=== PATIENT | male | born 1990 | race Caucasian/White ===

== ENCOUNTER 2016-08-03 14:12 | Emergency (ER) | payer OTHER ==
[~2016-08-03] VITALS: Ht 167.6 cm; Wt 68.9 kg
[~2016-08-03 14:12] MED LIST: PRLSR20 PO
[2016-08-03 14:16] VITALS: Ht 167.6 cm; Wt 68.9 kg
[2016-08-03 14:47] VITALS: BP 114/75; PULSE 55; TEMP 36.9; O2SAT 99
--- NOTE | 2016-08-03 17:10 | EMERGENCY ROOM VISIT NOTE ---
History First contact with patient: 14:20 Chief Complaint: KNEEPAIN Stated Complaint: EXTRA SKIN ON KNEE - PAIN History of Present Illness The patient is a 26 year old male who presents to the Emergency Room with complaints of painful lump on his right knee that has been increasing in size over the past several months. The patient has not had fever or chills. No bleeding or discharge has been noted from the lump. He does not recall injury or trauma. He states his discomfort worsens with certain movement and palpation in the area. He rates the discomfort a 4/10 and has not taken anything [id number]. Review of Systems More than 10 systems were reviewed and otherwise negative with the exception of history of present illness. Past Medical/Surgical History Medical Problems: (1) Corneal abrasion (2) Food poisoning (3) Mononucleosis Family History FH: diabetes mellitus Social History Smoking Status: Never Smoker Alcohol Use: occasionally Drug Use: none Marital Status: single Housing Status: lives with roommate Occupation Status: [employer] student Current/Historical Medications Scheduled PRN Omeprazole (Prilosec), 20 MG PO DAILY PRN for acid reflux Allergies Coded Allergies: Amoxicillin (Unverified Allergy, Intermediate, RASH, 06/15/15) Physical Exam Vital Signs Date Time Temp Pulse Resp B/P Pulse Ox O2 Delivery O2 Flow Rate FiO2 08/03/16 14:47 36.9 55 16 114/75 99 08/03/16 14:16 36.9 55 16 114/75 99 Room Air Pain Rating (0-10): 0 Physical Exam VITALS: Vitals are noted on the nurse's note and reviewed by myself. Vital signs stable. GENERAL: Well-developed, well-nourished, male, who is in no acute distress and resting comfortably. Patient is cooperative with the examination. MUSCULOSKELETAL: No muscle atrophy, erythema, or edema noted. Full range of motion without joint tenderness in all extremities. No bony tenderness of the right knee or right lower extremity on palpation. There is a 1.5 cm diameter cutaneous wart that rises 4-5 mm above the surrounding tissue. This is with overlying callus and correlates with the patient's area of maximum tenderness. No other lesions noted. NEURO: Patient was alert and oriented to person place and time. CN II through XII grossly intact. Medical Decision & Procedures ED Course Physical exam and history were performed. Nursing notes and EMR were reviewed. Patient appears to have fairly large cutaneous warts on the right proximal anterior tibia. This does not appear with infection or active bleeding. I discussed conservative options of care with the patient, and recommend over-the- counter treatments. He may also wish to follow with his primary care physician for possible excision. The patient was invited back to the ER with any new, worsening, or concerning symptoms. The chart was completed utilizing [employer] Voice Recognition Software. Grammatical errors, random word insertions, pronoun errors, and incomplete sentences are an occasional consequence of this system due to software limitations, ambient noise, and hardware issues. Any formal questions or concerns about the content, text, or information contained within the body of this dictation should be directly addressed to the provider for clarification. . Medical Decision Differential diagnosis includes, but is not limited to: Wart, cancer, infection , vasculitis, and others Impression Primary Impression: Wart Departure Information Dispostion Home / Self-Care Condition GOOD Forms HOME CARE DOCUMENTATION FORM, IMPORTANT VISIT INFORMATION Patient Instructions My [facility] Additional Instructions You were seen and evaluated today on an emergency basis only. This is not a substitute for, or an effort to provide, complete comprehensive medical care. It is not possible to recognize and treat all injuries or illnesses in a single emergency department visit. For this reason it is recommended that you followup with your primary care physician with any ongoing or persistent symptoms. Consider an [id number] wart remover product. These are readily available at pharmacies. You are welcome to return to the emergency department anytime with new, worsening, or concerning symptoms.
== END 2016-08-03 14:47 | disposition home or self-care (01) ==
LOC: C.EDB 14:13 → C.EDD 14:47
DX: B07.9 Viral wart, unspecified (principal); Z83.3 Family history of diabetes mellitus